=== PATIENT | female | born 1940 | race Caucasian/White ===

== ENCOUNTER → 2016-07-13 | Outpatient (CLI) | payer MEDICARE ==
[~2016-07-13] VITALS: Ht 167.6 cm; Wt 77.1 kg
== END ==
LOC: OPSV 08:00
DX: D83.9 Common variable immunodeficiency, unspecified (principal); D84.9 Immunodeficiency, unspecified
CPT/HCPCS: 96365; 96366; J1561

== ENCOUNTER → 2016-08-22 | Outpatient (CLI) | payer MEDICARE ==
[~2016-08-22] VITALS: Ht 167.6 cm; Wt 77.1 kg
== END ==
LOC: OPSV 09:42
DX: D83.9 Common variable immunodeficiency, unspecified (principal)
CPT/HCPCS: 96365; 96366; J1561; J1568

== ENCOUNTER → 2016-09-19 | Outpatient (CLI) | payer MEDICARE | LOC: OPSV 09:46 | DX: D83.9 Common variable immunodeficiency, unspecified (principal); D84.9 Immunodeficiency, unspecified | CPT/HCPCS: 96365; 96366; J1568 ==

== ENCOUNTER → 2020-05-06 | Outpatient (CLI) | payer MEDICARE ==
[~2020-05-06] VITALS: Ht 168.9 cm; Wt 77.1 kg
[~2020-05-06] MED LIST: ADVAIR 100-501 EACH INH; ALBUTEROL2.5 MG/3 M INH; ASPIRIN EC81 MG PO; BIOTIN1 M1 PO; CYANOCOBAL1000 MCG/1 INJ; CYMBALTA30 MG PO; DALIRESP250 MCG PO; DIOVAN160 MG PO; ELAVIL 10 MG TA10 MG PO; ELIQUIS 5 MG TAB5 MG PO; ESTRACE0.5 MG PO; FIBER WELL PO; IMMUNE GLOBULIN 10% IV; LEVOFLOXACIN500 MG PO; LIPITOR TAB 2020 MG PO; MEDROL DOSEPAK 24 MG PO; MUCINEX600 MG PO; NEURONTIN 100100 MG PO; NORVASC5 MG PO; SPIRIVA HANDIH18 MCG INH; TOPROL XL25 MG PO; VALSARTAN-HCTZ1 EAC2 PO; VALSARTAN80 MG PO; VENTOLIN HFA 66.7 GM INH; WIXELA 100-501 EACH INH
== END ==
LOC: OPSV 09:32
DX: D83.9 Common variable immunodeficiency, unspecified (principal)
CPT/HCPCS: 96365; 96366; J1568

== ENCOUNTER → 2020-06-10 | Outpatient (CLI) | payer MEDICARE ==
[~2020-06-10] VITALS: Ht 168.9 cm; Wt 77.1 kg
== END ==
LOC: OPSV 08:52
DX: D83.9 Common variable immunodeficiency, unspecified (principal)
CPT/HCPCS: 96365; 96366; J1568

== ENCOUNTER 2020-06-18 11:30 | Inpatient (IN) | payer MEDICARE ==
[~2020-06-18] VITALS: Ht 167.6 cm; Wt 81.9 kg
[~2020-06-18 11:30] MED LIST changes: -ADVAIR 100-501 EACH INH; -BIOTIN1 M1 PO; -CYMBALTA30 MG PO; -DIOVAN160 MG PO; -LEVOFLOXACIN500 MG PO
[2020-06-18 15:01] LABS: HEMOGLOBIN 12.4 gm/dl (12.3-15.3); RED BLOOD COUNT 4.18 M/UL (4.00-5.10); WHITE BLOOD COUNT 7.4 K/UL (4.5-11.0)
[2020-06-18 15:19] LABS: BUN/CREATININE RATIO 28 (0-10)
[2020-06-18] MEDS ORDERED: DIOVAN160 MG PO (16:03)
[2020-06-18] MEDS ORDERED: CYMBALTA30 MG PO (16:04)
[2020-06-18] MEDS ORDERED: ADVAIR 100-501 EACH INH (16:09)
[2020-06-18] MEDS ORDERED: BIOTIN1 M1 PO (16:09)
[2020-06-19 04:23] LABS: HEMOGLOBIN 12.3 gm/dl (12.3-15.3); RED BLOOD COUNT 4.27 M/UL (4.00-5.10)
[2020-06-19 04:42] LABS: BUN/CREATININE RATIO 29 (0-10)
[2020-06-19 16:13] LABS: IMMUNOGLOBULIN G, QN, SERUM 1147 mg/dL (586-1602)
[2020-06-21] MEDS ORDERED: LEVOFLOXACIN500 MG PO (10:24)
[2020-06-21] MEDS ORDERED: MEDROL DOSEPAK 24 MG PO (10:24)
== END 2020-06-21 15:49 | disposition home or self-care (01) | DRG 189 ==
LOC: M/S 11:30
PROVIDERS: Internal Medicine Pulmonary Disease; Physician Assistant Medical; ADMIT Internal Medicine
DX: J96.21 Acute and chronic respiratory failure with hypoxia (principal); J44.0 Chronic obstructive pulmonary disease with (acute) lower respiratory infection; J44.1 Chronic obstructive pulmonary disease with (acute) exacerbation; R04.2 Hemoptysis; D83.9 Common variable immunodeficiency, unspecified; E87.1 Hypo-osmolality and hyponatremia; I10 Essential (primary) hypertension; J20.9 Acute bronchitis, unspecified; I25.10 Atherosclerotic heart disease of native coronary artery without angina pectoris; E78.5 Hyperlipidemia, unspecified; Z86.16 Personal history of COVID-19; Z20.822 Contact with and (suspected) exposure to COVID-19; Z99.81 Dependence on supplemental oxygen; Z90.49 Acquired absence of other specified parts of digestive tract; Z90.710 Acquired absence of both cervix and uterus; Z79.01 Long term (current) use of anticoagulants; Z79.82 Long term (current) use of aspirin; Z79.899 Other long term (current) drug therapy; Z87.891 Personal history of nicotine dependence; Z80.3 Family history of malignant neoplasm of breast; Z98.61 Coronary angioplasty status
CPT/HCPCS: 36415; 36600; 71046; 80048; 82784; 82787; 82803; 83735; 85025; 85027; 94640; 94664; 94760; J1956; J2920; U0002

== ENCOUNTER → 2020-06-18 | Outpatient (CLI) | payer MEDICARE | LOC: EXRD 11:06 | DX: J44.1 Chronic obstructive pulmonary disease with (acute) exacerbation (principal) | CPT/HCPCS: 71046 ==

== ENCOUNTER → 2020-07-08 | Outpatient (CLI) | payer MEDICARE ==
[~2020-07-08] VITALS: Ht 168.9 cm; Wt 77.1 kg
[~2020-07-08] MED LIST changes: +ADVAIR 100-501 EACH INH; +BIOTIN1 M1 PO; +CYMBALTA30 MG PO; +DIOVAN160 MG PO; +LEVOFLOXACIN500 MG PO
== END ==
LOC: OPSV 09:33
DX: D83.9 Common variable immunodeficiency, unspecified (principal)
CPT/HCPCS: 96365; 96366; J1568

== ENCOUNTER → 2020-08-12 | Outpatient (CLI) | payer MEDICARE ==
[~2020-08-12] VITALS: Ht 168.9 cm; Wt 77.1 kg
== END ==
LOC: OPSV 08:52
DX: D83.9 Common variable immunodeficiency, unspecified (principal)
CPT/HCPCS: 96365; 96366; J1568

== ENCOUNTER → 2020-09-09 | Outpatient (CLI) | payer MEDICARE ==
[~2020-09-09] VITALS: Ht 168.9 cm; Wt 77.1 kg
== END | disposition home or self-care (01) ==
LOC: OPSV 09:00
DX: D83.9 Common variable immunodeficiency, unspecified (principal)
CPT/HCPCS: 96365; 96366; J1568

== ENCOUNTER → 2020-10-07 | Outpatient (CLI) | payer MEDICARE ==
[~2020-10-07] VITALS: Ht 168.9 cm; Wt 77.1 kg
== END ==
LOC: OPSV 08:26
DX: D83.9 Common variable immunodeficiency, unspecified (principal)
CPT/HCPCS: 96365; 96366; J1568

== ENCOUNTER → 2020-11-04 | Outpatient (CLI) | payer MEDICARE ==
[~2020-11-04] VITALS: Ht 168.9 cm; Wt 77.1 kg
== END ==
LOC: OPSV 08:19
DX: D83.9 Common variable immunodeficiency, unspecified (principal)
CPT/HCPCS: 96365; 96366; J1568

== ENCOUNTER → 2020-12-02 | Outpatient (CLI) | payer MEDICARE ==
[~2020-12-02] VITALS: Ht 168.9 cm; Wt 77.1 kg
== END ==
LOC: OPSV 08:00
DX: D83.9 Common variable immunodeficiency, unspecified (principal)
CPT/HCPCS: 96365; 96366; J1568

== ENCOUNTER → 2021-01-04 | Outpatient (CLI) | payer MEDICARE | LOC: OPSV 09:32 | DX: D83.9 Common variable immunodeficiency, unspecified (principal) | CPT/HCPCS: 96365; 96366; J1568 ==

== ENCOUNTER → 2021-03-16 | Outpatient (CLI) | payer MEDICARE ==
[~2021-03-16] VITALS: Ht 168.9 cm; Wt 77.1 kg
== END ==
LOC: OPSV 09:00
DX: D83.9 Common variable immunodeficiency, unspecified (principal)
CPT/HCPCS: 96365; 96366; J1568

== ENCOUNTER → 2021-04-13 | Outpatient (CLI) | payer MEDICARE ==
[~2021-04-13] VITALS: Ht 168.9 cm; Wt 77.1 kg
== END ==
LOC: OPSV 08:44
DX: D83.9 Common variable immunodeficiency, unspecified (principal)
CPT/HCPCS: 96365; 96366; J1568

== ENCOUNTER → 2021-05-14 | Outpatient (CLI) | payer MEDICARE | LOC: OPSV 08:43 | DX: D83.9 Common variable immunodeficiency, unspecified (principal) | CPT/HCPCS: 96365; 96366; J1568 ==

== ENCOUNTER → 2021-06-14 | Outpatient (CLI) | payer MEDICARE ==
[~2021-06-14] VITALS: Ht 167.6 cm; Wt 77.1 kg
== END ==
LOC: OPSV 08:00
DX: D83.9 Common variable immunodeficiency, unspecified (principal)
CPT/HCPCS: 96365; 96366; J1568